=== PATIENT | male | born 1950 | race Caucasian/White ===

== ENCOUNTER 2016-03-10 12:06 | Inpatient (IN) ==
[2016-03-10] MEDS ORDERED: SODIUM CHLORIDE 0.9% 500 ML IV STA (12:58)
[2016-03-10] MEDS ORDERED: ONDANSETRON 4 MG/2 ML VIAL IV STA (12:58)
[2016-03-10] MEDS ORDERED: ALBUTEROL 2.5 MG/3 ML NEB RESP TX STA (12:59)
[2016-03-10] MEDS ORDERED: ONDANSETRON 4 MG/2 ML VIAL ONE ×2 (13:07→17:40)
--- NOTE | 2016-03-10 13:13 | Emergency Department Note ---
María Munoz Gwan, am scribing for, and in the presence of, Brice Medellin MD 13:01 . Lacie Munoz James D, MD, personally performed the services described in this documentation, ascribed by Sarthak Daniel in my presence, and it is both accurate and complete 310 . Arrival - Arrival Chief Complaint: Abdominal / Flank Pain Stated Complaint: nausea, diaherra, headache, fever ED Nursing Triage Note: c/o n/v/d and abd pain that started. +fever and chills Mode of Arrival: Ambulatory Limitations: No Limitations Source: Patient, Old Records Reviewed, RN Notes Reviewed Time Seen by Provider: 03/10/16 12:54 - History of Present Illness HPI Narrative: Pt is a 65 y/o male who presents to the ED with a c/o abd pain with an onset 5 days ago. His associated sxs have been N/V/D, loss of appetite, productive cough and subjective fever. At time of triage, pt's temperature was 98.1. Patient denies smoking cigarettes but stated that he is a social user of ETOH. He stated that he has not been around anyone else that has been sick. No other problems/complaints reported in ED. Onset (ago): day(s) Consistency: constant Severity: moderate Allergies/Adverse Reactions: Allergies Allergy/AdvReac Type Severity Reaction Status Date / Time Penicillins Allergy UNCONSCIOUS Verified 04/14/15 09:05 Home Medications: Home Medications Medication Instructions Recorded Confirmed Type No Known Home Medications [No 03/10/16 03/10/16 History Known Home Medications] Review of System - Review of System 12 point system: reviewed and no additional remarkable complaints except as stated - Review of System Constitutional: Present: as per HPI, fever, other (loss of appetite) Head/Ears/Nose/Throat: Present: see HPI, sore throat Gastrointestinal: Present: as per HPI, abdominal pain, nausea, vomiting, diarrhea Medical,Surgical,& Family Hx - Medical History Endocrine: History of: Diabetes Mellitus (NIDDM) - Social History Smoking Status: Never smoker Frequency of Alcohol Use: Occasionally Type of Drug Use: None Exam Vital Signs: Vital Signs Temperature 98.1 F 03/10/16 12:15 Pulse Rate 80 03/10/16 13:43 Respiratory Rate 18 03/10/16 13:43 Blood Pressure 127/84 03/10/16 12:15 O2 Sat by Pulse Oximetry 100 03/10/16 13:43 GENERAL: This is a well-nourished well-developed white male in no apparent distress. VITAL SIGNS: Reviewed HEENT: Head is atraumatic and normocephalic. Pupils are equal round react to light. Extraocular movements are intact. Oropharynx is benign with moist mucous membranes. NECK: Neck is soft and supple without tenderness. There are no masses. There is no lymphadenopathy. LUNGS: Expiratory wheezes in posterior lung ayers with prolonged expiration. Chest rises symmetrically. There is no chest wall tenderness. CV: Heart is regular rate and rhythm without murmurs rubs or gallops. ABDOMEN: Abdomen is soft, nontender to palpation. There are no abdominal abnormal masses palpated. There is no organomegaly. Bowel sounds are present and active. SKIN: Skin is warm and dry. No rash. EXTREMITIES: Patient has full range of motion without tenderness. There is no pedal edema. NEUROLOGIC: Awake alert and oriented 4. Cranial nerves II through XII are grossly intact. Motor is 5 over 5 in all extremities bilaterally. Course - Consultations Consultation #1: Discussed with hospitalist. Patient will be admitted to their service. Time: 15:55 Results - Labs CBC & BMP: 03/10/16 13:10 03/10/16 13:10 Lab Results: I have reviewed the patients labs Labs: Laboratory Tests 03/10/16 13:10 AST 475 H ALT 418 H Lipase 225.0 - EKG EKG results: interpreted by ERMD - Impressions EKG: Normal sinus rhythm with rate of 77, left axis deviation, nonspecific ST-T wave changes. - Diagnostic Findings Procedure: Abdominal x-ray: image reviewed by me (No free air, gas in the rectum , nonspecific gas pattern), Chest x-ray: image reviewed by me (No cardiomegaly, no pleural effusions, no infiltrates.), Ultrasound: report reviewed by me ( Gallbladder ultrasound: Positive Denny sign consistent with acute cholecystitis. HIDA scan is recommended. No cholelithiasis.) Disposition Clinical Impression: Cough, Nausea vomiting and diarrhea, Elevated LFTs, Right upper quadrant abdominal pain Case discussed with: patient Disposition: Still a Patient Condition: Stable Time of Disposition: 15:55
--- NOTE | 2016-03-10 13:25 | EKG Report ---
Stationary ECG Study [facility] ER Test Date: 03/10/2016 1:23:55 PM Pat Name: MOJGAN GRIER Department: Room: Gender: M Decision Analyst: BILLY : 1950 Requested by: Brice Dorsey Order Number: [id number] Reading MD: AMALIA DAVIS Intervals [place] Rate: 77 P: 62 WI: 155 QRS: -43 QRSD: 95 T: 13 QT: 370 QTc: 402 Interpretive Statements SINUS RHYTHM MARKED LEFT AXIS DEVIATION Electronically Signed On 03-10-16 13:31:15 VENDING MACHINE ATTENDANT by AMALIA DAVIS [email or web address]
[2016-03-10 13:26] LABS: Basophils % 0.3 % (0.0-0.8); Eosinophils % 0.2 % (0.00-10.9); Hematocrit 45.2 VOL% (42.0-52.0); Hemoglobin 15.8 GM/DL (14.0-18.0); Immature Granulocytes % 0.2 %; Immature Granulocytes Absolute 0.01 #; Lymphocytes # 1.4 10*3/uL (1.4-4.0); Lymphocytes % 22.7 % (21.2-54.2); Mean Corpuscular Hemoglobin 32 PG (27-34); Mean Corpuscular Volume 90.4 FL (87-102); Mean Platelet Volume 10.3 FL (9.6-12.0); Monocytes # 0.8 10*3/uL (0.11-0.8); Monocytes % 12.8 % (1.7-12.7); Neutrophils % 63.8 % (38.7-73.9); Platelet Count 137 10*3/uL (130-400); Red Cell Distribution Width 12.4 % (9.3-17.3); White Blood Count 6.3 10*3/uL (4.5-13.71)
--- NOTE | 2016-03-10 13:31 | XRay Report ---
History: Abdominal pain Date: 03/10/2016 Study: Flat and erect abdomen Comparison exam: No abdominal x-ray available There is no evidence of pneumoperitoneum. The bowel gas pattern is nonobstructive without gross mass lesion. No radiopaque calculi are seen. There is prominent dextroscoliosis of the spine centered at the thoracolumbar junction. There is scattered moderate to prominent degenerative disc disease of the lumbar spine. Impression: No acute abdominal process. Scoliosis PROCEDURE INTERPRETED AT [facility] DEPARTMENT OF RADIOLOGY Final Report Signed by: Dr. Zari Judd
--- NOTE | 2016-03-10 13:34 | XRay Report ---
History: Abdominal pain with nausea, vomiting, diarrhea appears loss of appetite. Productive cough. Fever Date: 03/10/2016 Study: Chest x-ray single view Comparison exam: Chest x-ray June 06, 2009 The cardiac silhouette is upper normal in size. There is no mediastinal mass. The pulmonary vasculature is not engorged. There is no gross pleural effusion. The lungs are generally clear for shallow breath. The osseous structures are unchanged. Impression: No acute cardiopulmonary process PROCEDURE INTERPRETED AT [facility] DEPARTMENT OF RADIOLOGY Final Report Signed by: Dr. Zari Judd
[2016-03-10 13:45] LABS: Albumin 3.3 G/DL (3.4-5.0); Bilirubin,Total 0.8 MG/DL (0.2-1.0); Calcium 8.5 MG/DL (8.5-10.1); Potassium 3.9 MMOL/L (3.5-5.1); Total Protein 7.3 G/DL (6.4-8.3)
[2016-03-10 14:33] LABS: INR 1.1; PT Patient Result 11.3 SECS; Partial Thromboplastin Time 30.8 SECS (0-40)
--- NOTE | 2016-03-10 14:59 | Ultrasound Report ---
Exam: US gallbladder Date: 03/10/2016 2:22 PM Comparison: 07/08/2011 Indication: Elevated liver function tests Technique: Multiple transabdominal real-time scans were obtained of the right upper quadrant. Limited color flow scans were obtained. Ultrasound images were captured and stored. Findings: 9 mm polypoidal mucosal finding projecting in the dependent gallbladder location. The finding does not move or shadow. Positive sonographic Denny's sign with no definite mobile gallstones. CBD is normal in size measuring 3 mm. The liver is at the upper limits normal in size with no definite masses. Right kidney measures 107 mm in length with no mass or hydronephrosis. The pancreas, aorta including aortic bifurcation, and IVC are obscured by bowel gas. Impression: 9 mm gallbladder polyp. It is difficult to exclude additional small masses with this finding. Reported positive sonographic Denny's sign which could be associated with acute cholecystitis. Biliary scan and ejection fraction may be helpful for further evaluation. The liver is borderline in size. The pancreas and aorta are obscured by bowel gas. PROCEDURE INTERPRETED AT [facility] DEPARTMENT OF RADIOLOGY Final Report Signed by: Dr. Carmen Cast
--- NOTE | 2016-03-10 16:45 | Nuclear Medicine Report ---
NM hepatobiliary Indication: Right upper quadrant abdominal pain with elevated LFTs Comparison: None Radiopharmaceutical: 5 mCi technetium 99m Choletec IV. Technique: Anterior dynamic images were acquired over the upper abdomen for a period of 1 hour following intravenous administration of the radiopharmaceutical. Subsequently, 2.4 mcg of Kinevac was administered intravenously with additional images of the upper abdomen acquired for 30 minutes. Gallbladder ejection fraction was calculated. Findings: Review of the images demonstrate prompt clearance of the radiopharmaceutical from the blood pool into the liver parenchyma. There is prompt progression of the isotope from the liver into the intrahepatic biliary ducts, common bile duct, and the gallbladder. Radiotracer is noted in the small bowel at the end of 60 minutes.Following administration of Kinevac, calculated gallbladder ejection fraction was 68 % (normal > 35%). There was further radiotracer accumulation in the small bowel. IMPRESSION: Unremarkable nuclear medicine hepatobiliary imaging study. PROCEDURE INTERPRETED AT [facility] DEPARTMENT OF RADIOLOGY Final Report Signed by: Dr Pasha Boyce
--- NOTE | 2016-03-10 17:23 | Hospitalist History & Physical ---
<Deepthi Lewis N - Last Filed: 03/10/16 18:13> Assessment and Plan (1) Right upper quadrant abdominal pain Status: Acute Assessment and plan: We will admit as inpt Hydrate well with IV fluids Consult GI to see him CT abdomen with IV contrast to further eval his liver LDH, GGT, Hepatitis Panel, tylenol level PPI therapy Clear liquid diet DVT prophylaxis SSI while inpt IV Levaquin PRN meds further plan and addendum to follow per Dr. Andrade Current Visit: Yes History of Present Illness History of present illness: I have seen and assessed with Dr. Andrade. Mr. Rai is a 65 year old male who presents to the Er with RUQ abdominal pain that started last . He admits to drinking a case of beer on Thu prior to that. States on he was ill, only able to eat small amounts of soup, and this has been constant since then and accompanied by n/v/ d. He did worsen yesterday having several episodes of diarrhea. He also has left flank musculature type pain, started after his vomiting. Also has cold s/s for a few days. Denies recent exposure to seafood. Denies recent exposure to illness. Denies daily tylenol use but does take PRN tylenol and BC. Admits to recent fever and chills, not eating well, very little, dark, urine output. He states he was admitted in the early and was told he had liver problems, he does not remember what kind or from what cause. He was a former heavy drinker , says he no longer drinks daily but about once a week he will drink a case of beer. Stopped smoking in and denies drug use. He also states he has a prior med hx of DM but has stopped taking his meds because it was too costly to go to his PCP to get refills. He has a PMH of DM. PSH of sinus sx, back sx, and abscess to left inner arm. On exam he is noted to have a large, protuberant, distended abdomen with tenderness in the RUQ. Liver large on exam per Dr. Andrade. Noted to have bibasilar rhonchi and wheezing. Had a prior colonoscopy and EGD by Dr. Styles several years ago. Liver enzymes noted to be elevated today, alkaline phos. and bilirubin normal. Afebrile and normal WBC. Had HIDA scan done in ER that was normal. Home Medications Medication Instructions Recorded Confirmed Type No Known Home Medications [No 03/10/16 03/11/16 History Known Home Medications] Allergies Allergy/AdvReac Type Severity Reaction Status Date / Time Penicillins Allergy UNCONSCIOUS Verified 04/14/15 09:05 Exam - Constitutional Vitals: Period Temp Pulse Resp BP Sys/Cotter Pulse Ox Last 24 Hr 98.1 F 72-94 18-18 127/84 96-100 Results - Labs CBC & BMP: 03/10/16 13:10 03/10/16 13:10 <Neil Andrade - Last Filed: 03/11/16 07:36> Assessment and Plan - Time spent with patient Time spent with patient: Greater than 30 minutes (1) Hepatitis Status: Acute Assessment and plan: hepatitis panel gi consult Current Visit: Yes (2) DM2 (diabetes mellitus, type 2) Status: Acute Assessment and plan: SSI with accu checks Current Visit: Yes Qualifiers: Diabetes mellitus complication status: without complication Diabetes mellitus intermission coordinator insulin use: without correction use Qualified Code(s): E11.9 - Type 2 diabetes mellitus without complications (3) Morbid obesity Status: Chronic Current Visit: Yes (4) Nausea vomiting and diarrhea Status: Acute Current Visit: Yes (5) Elevated LFTs Status: Acute Current Visit: Yes (6) Right upper quadrant abdominal pain Status: Acute Current Visit: Yes History of Present Illness Chief complaint: N/V/ diarrhea, Abdominal Pain History of present illness: Mr. Rai is a 65 year old male presents to the emergency department with abdominal pain that began on with accompanying nausea and vomiting and diarrhea. Symptoms of worsened since beginning on culminating in no multiple bouts of diarrhea Thursday and yesterday. He presents to the emergency department for further evaluation and treatment. He's noted to have elevated liver function tests. There is no evidence of gallbladder disease or dysfunction or cholecystitis. He is being admitted to the hospital service for further evaluation and treatment and GI consultation. I have discussed the plan with the CLINICAL PROGRAM DIRECTOR and agree with the documentation below. Medical,Surgical,& Family Hx - Medical History Endocrine: History of: Diabetes Mellitus (NIDDM) - Social History Smoking Status: Never smoker Frequency of Alcohol Use: Occasionally Type of Drug Use: None 12 point system: reviewed and no additional remarkable complaints except as stated - Constitutional Constitutional: Present: as per HPI - Gastrointestinal Gastrointestinal: Present: abdominal pain, diarrhea, vomiting Exam - Constitutional Vitals: Period Temp Pulse Resp BP Sys/Cotter Pulse Ox Last 24 Hr 98.1 F 72-94 18-18 127/84 96-100 General appearance: mild distress - Head Head exam: Present: normal inspection, normocephalic, atraumatic - Eye Eye exam: Present: EOMI Pupils: Present: VELIA - ENT ENT exam: Present: normal oropharynx - Respiratory Respiratory exam: Present: rhonchi, wheezes - Cardiovascular Cardiovascular exam: Present: regular rate and rhythm - GI/Abdominal GI/Abdominal exam: Present: normal bowel sounds, distended, Denny's sign, tenderness - Extremities Exam Extremities exam: Present: normal inspection, full ROM. Absent: edema - Back Exam Back exam: Present: normal inspection - Neurological Exam Neurological exam: Present: alert, oriented X3 - Psychiatric Psychiatric exam: Present: normal affect, normal mood - Skin Skin exam: Present: normal color, warm, dry Results - Labs CBC & BMP: 03/11/16 05:13 03/11/16 05:13 Lab Results: I have reviewed the past 24 hour labs
[2016-03-10] MEDS ORDERED: MORPHINE 2 MG/1 ML SYRINGE ONE (17:41)
[2016-03-10] MEDS: ONDANSETRON 4 MG/2 ML VIAL IV PRN (17:45)
[2016-03-10] MEDS: MORPHINE 2 MG/1 ML SYRINGE IV PRN (17:45)
[2016-03-10] MEDS ORDERED: DEXTROSE 50% 25 GM/50 ML VIAL IV PRN (17:57)
[2016-03-10] MEDS ORDERED: GLUCAGON 1 MG VIAL IM PRN (17:57)
--- NOTE | 2016-03-10 19:41 | CT Report ---
CT abdomen pelvis wo con Indication: Abdominal pain, abnormal LFTs Comparison: CT abdomen pelvis dated july 28 Technique: Multiple axial tomographic images of the abdomen and pelvis were obtained without use of intravenous contrast. Findings: Mild dependent change of the lung bases present. No worrisome focal hepatic abnormality. Gallbladder mildly distended. Pancreas and spleen grossly unremarkable. Redemonstration of a right adrenal lesion with Hounsfield units suggestive of adenoma. Left adrenal gland grossly unremarkable. No evidence of hydronephrosis. Bilateral nonspecific perinephric fat stranding. Urinary bladder nondistended and incompletely evaluated. Prostate demonstrates mild calcification. No evidence of gastrointestinal obstruction or acute appendicitis. Small lipoma is suggested within the gastric antrum. Mild atherosclerotic calcifications present. There is continued prominence of a portacaval lymph node which measures up to 1.7 cm and is somewhat hyperdense. This is unchanged from comparison study dated july 28. Lipoma demonstrated within the musculature of the left anterior upper abdomen/lower chest wall measuring up to 8.1 x 3.0 cm in axial dimensions. Scoliotic curvature and degenerative change of the spine present. Chronic appearing severe compression deformity of T11. IMPRESSION: Mild distention of the gallbladder present. Nuclear medicine hepatobiliary imaging study may be beneficial for further evaluation. Other chronic/nonemergent findings as detailed above. PROCEDURE INTERPRETED AT [facility] DEPARTMENT OF RADIOLOGY Final Report Signed by: Dr Pasha Boyce
[2016-03-10] MEDS ORDERED: ALBUTEROL/IPRATROPIUM 3 ML NEB RESP TX STA (20:09)
[2016-03-10] MEDS: SODIUM CHLORIDE 0.9% 1,000 ML IV SCH (20:20)
[2016-03-10] MEDS: LEVOFLOXACIN INJ 750 MG in PREMIX 1 EACH IV SCH (21:24)
[2016-03-10] MEDS: CYCLOBENZAPRINE 10 MG TABLET PO PRN (21:25)
[2016-03-10] MEDS: PANTOPRAZOLE 40 MG TABLET PO SCH (21:25)
[2016-03-10] MEDS: INSULIN LISPRO 100 UNIT/ML SUBCUT SCH (21:25)
[2016-03-10] MEDS: ZALEPLON 5 MG CAPSULE PO PRN (21:25)
[2016-03-10] MEDS: guaiFENesin/DM ER 600-30 MG TABLET PO SCH (21:25)
[2016-03-11] MEDS: SODIUM CHLORIDE 0.9% 1,000 ML IV SCH ×3 (04:51→22:42)
[2016-03-11 06:27] LABS: Hepatitis A Ab IgM Quant 0.18 Index; Hepatitis A Ab IgM Result Negative (Negative); Hepatitis B Core IgM Quant 0.22 Index; Hepatitis B Core IgM Result Negative (Negative); Hepatitis C Virus Ab Quant 0.04 Index; Hepatitis C Virus Ab Result Negative (Negative)
[2016-03-11 06:33] LABS: Basophils % 0.5 % (0.0-0.8); Eosinophils % 0.7 % (0.00-10.9); Hematocrit 40.7 VOL% (42.0-52.0); Hemoglobin 14.2 GM/DL (14.0-18.0); Lymphocytes % 45.9 % (21.2-54.2); Mean Corpuscular HGB Conc 34.9 GM/DL (32-36); Mean Corpuscular Hemoglobin 32 PG (27-34); Mean Corpuscular Volume 91.3 FL (87-102); Mean Platelet Volume 10.7 FL (9.6-12.0); Monocytes # 0.4 10*3/uL (0.11-0.8); Monocytes % 8.9 % (1.7-12.7); Neutrophils # 1.9 10*3/uL (1.4-7.4); Red Blood Count 4.46 10*6/uL (3.8-5.5); Red Cell Distribution Width 12.4 % (9.3-17.3)
[2016-03-11 06:34] LABS: Platelet Count 108 10*3/uL (130-400); White Blood Count 4.4 10*3/uL (4.5-13.71)
[2016-03-11 06:56] LABS: Free T4 (Free Thyroxine) 1.17 NG/DL (0.76-1.46)
[2016-03-11 07:08] LABS: Albumin 2.8 G/DL (3.4-5.0); Bilirubin,Total 1.1 MG/DL (0.2-1.0); Calcium 8.1 MG/DL (8.5-10.1); Magnesium 1.9 MG/DL (1.8-2.4); Osmolality,Calculated 277.5 MOS/KG (273-304); Risk Ratio 4.47; Thyroid Stimulating Hormone 2.27 uIU/ml (0.358-3.74); Total Protein 5.8 G/DL (6.4-8.3); VLDL CHOLESTEROL 17.8 MG/DL
[2016-03-11 07:15] LABS: Hepatitis B Surface Ag Quant < 0.10 Index; Hepatitis B Surface Ag Result Negative (Negative)
[2016-03-11] MEDS: INSULIN LISPRO 100 UNIT/ML SUBCUT SCH ×4 (07:47→20:50)
[2016-03-11] MEDS: guaiFENesin/DM ER 600-30 MG TABLET PO SCH ×2 (09:00→20:50)
[2016-03-11] MEDS: PANTOPRAZOLE 40 MG TABLET PO SCH ×2 (09:00→20:50)
[2016-03-11] MEDS: ONDANSETRON 4 MG/2 ML VIAL IV PRN (10:58)
[2016-03-11] MEDS: MORPHINE 2 MG/1 ML SYRINGE IV PRN (10:58)
--- NOTE | 2016-03-11 12:02 | Hospitalist Progress Note ---
Assessment and Plan (1) Hepatitis Status: Acute Assessment and plan: acute hepatitis panel negative gi consult pending Current Visit: Yes (2) DM2 (diabetes mellitus, type 2) Status: Acute Assessment and plan: SSI with accu checks Current Visit: Yes Qualifiers: Diabetes mellitus complication status: without complication Diabetes mellitus long term care administrator insulin use: without care home use Qualified Code(s): E11.9 - Type 2 diabetes mellitus without complications (3) Morbid obesity Status: Chronic Current Visit: Yes (4) Nausea vomiting and diarrhea Status: Acute Current Visit: Yes (5) Elevated LFTs Status: Acute Current Visit: Yes (6) Right upper quadrant abdominal pain Status: Acute Current Visit: Yes Hospitalist: Subjective Interval history: Patient seen and examined. No acute events overnight. He continues to have some diarrhea. Nausea persists. No vomiting. No fever. Abdominal pain is a little bit better. LFTs are mildly improved. Awaiting GI consult. He's on clear liquid diet and tolerating it well. Exam - Constitutional Vitals: Period Temp Pulse Resp BP Sys/Cotter Pulse Ox Last 24 Hr 98.1 F-98.5 F 56-77 18-22 99-126/56-73 96-96 General appearance: no acute distress - Head Head exam: Present: normal inspection, normocephalic - Eye Eye exam: Present: EOMI - Respiratory Respiratory exam: Present: clear to auscultation bilaterally - Cardiovascular Cardiovascular exam: Present: regular rate and rhythm - GI/Abdominal GI/Abdominal exam: Present: normal bowel sounds, distended, tenderness (ruq) - Extremities Exam Extremities exam: Absent: edema - Neurological Exam Neurological exam: Present: alert, oriented X3 - Psychiatric Psychiatric exam: Present: normal affect, normal mood - Skin Skin exam: Present: normal color, warm, dry Results - Labs CBC & BMP: 03/11/16 05:13 03/11/16 05:13 Lab Results: I have reviewed the past 24 hour labs Specialty Discharge - Follow Up or Referrals - Discharge Medications No Action No Known Home Medications [No Known Home Medications]
--- NOTE | 2016-03-11 13:02 | Gastrointestinal Consult Note ---
Assessment and Plan (1) Elevated LFTs Status: Acute Assessment and plan: 03/11-Findings of elevated LFTs with vague history of this in past. Negative hepatitis panel. CT of abdomen, HIDA and gallbladder US results noted. Hx noted of elevated LFTs on prior hospitalization. Plan and addendum to follow by Dr Judd. Current Visit: Yes History of Present Illness Chief complaint: Elevated LFTs History of present illness: Mr. Rai is a 65 year old male who was admitted to the hospital with one week history of upper respiratory symptoms, nausea, vomiting and diarrhea. Pt states that one week ago he had onset of a productive cough, reported fever ( not checked), chills and loss of appetite. He also began having some nausea with episodes of vomiting. He states he had some diffuse pain throughout his abdomen as well and began having diarrhea about the same time. Pt states he has had too numerous to count stools since onset until today and has decreased in frequency now. He denies any melena or hematochezia. Denies any coffee ground or hematemesis. He denies being around others who have been ill recently. States that he has lost his appetite as well and has not eaten in several days anything other than a little soup. He was noted on admission to have elevated AST at 475, ALT 418 with normal bilirubin and alkaline phosphatase. These have trended down some today however Bilirubin is up slightly at 1.10. Lipase 225. He states he has a long history of alcohol use however states he drinks every other day to once a month sometimes, anywhere from a beer to a case of beer at a time. He did drink a case of beer last thursday and symptoms began following this. Reports some vague pain in his left upper side that comes and goes and has done so for long period of time. Reports some RUQ pain that has wavered as well since onset, radiating to his back. He denies any illegal drug use, tobacco use. He has multiple "store bought" tattoos. States he was told in the he had something wrong with his liver and initially thought to have hepatitis C however he states this was not the case. He reports not having his LFTs checked since this time. He denies any illnesses prior to this onset, denies any OTC medications, prescription medication changes or supplement use. CT of abdomen w/o contrast shows mild distention of gallbladder, gastric antrum lipoma, no worriesome focal hepatic abnormality. GB US shows gallbladder polyp, ? additional small mass, positive [place] sign, liver upper limits of normal w/ o masses. HIDA scan unremarkable. He is noted in our facility database to have mildly elevated LFTs in 2010 with negative hepatitis workup. Hx of DM, not taking medications due to financial reasons. Home Medications Medication Instructions Recorded Confirmed Type No Known Home Medications [No 03/10/16 03/11/16 History Known Home Medications] Allergies Allergy/AdvReac Type Severity Reaction Status Date / Time Penicillins Allergy UNCONSCIOUS Verified 04/14/15 09:05 Medical,Surgical,& Family Hx - Medical History Cardio: History of: Hypertension Endocrine: History of: Diabetes Mellitus (NIDDM) Musculoskeletal: History of: Back/Neck Problems - Surgical History Abdominal Surgeries: Patient denies: Abdominal Surgery Reproductive Surgeries: Patient denies;: Genitourinary Surgery - Family History Family History: Reports;: Family Cancer (brother), Family Stroke (mother) - Social History Smoking Status: Never smoker Frequency of Alcohol Use: Occasionally Type of Drug Use: None 12 point system: reviewed and no additional remarkable complaints except as stated - Constitutional Constitutional: Present: as per HPI, chills, fever(s), weakness - EENT Eyes: Present: as per HPI Ears: Present: as per HPI Nose, mouth and throat: Present: as per HPI - Cardiovascular Cardiovascular: Present: as per HPI - Respiratory Respiratory: Present: as per HPI, cough - Gastrointestinal Gastrointestinal: Present: as per HPI, abdominal pain, diarrhea, nausea, vomiting - Genitourinary Genitourinary: Present: as per HPI - Musculoskeletal Musculoskeletal: Present: as per HPI - Neurological Neurological: Present: as per HPI - Psychiatric Psychiatric: Present: as per HPI - Endocrine Endocrine: Present: as per HPI - Hematologic/Lymphatic Hematologic/Lymphatic: Present: as per HPI Exam - Constitutional Vitals: Period Temp Pulse Resp BP Sys/Cotter Pulse Ox Last 24 Hr 98.1 F-98.5 F 52-77 18-22 99-126/56-80 96-98 General appearance: normal weight, no acute distress - Head Head exam: Present: normal inspection, normocephalic - Eye Eye exam: Present: other (lids and conjunctiva unremarkable). Absent: scleral icterus - ENT ENT exam: Present: normal exam, normal oropharynx - Neck Neck exam: Present: normal inspection - Respiratory Respiratory exam: Present: clear to auscultation bilaterally. Absent: rales, rhonchi, wheezes - Cardiovascular Cardiovascular exam: Present: regular rate and rhythm. Absent: diastolic murmur , JVD, systolic murmur - GI/Abdominal GI/Abdominal exam: Present: normal bowel sounds, soft. Absent: ascites, distended, mass, organomegaly, tenderness - Extremities Exam Extremities exam: Present: normal inspection, full ROM - Back Exam Back exam: Present: normal inspection - Neurological Exam Neurological exam: Present: alert, oriented X3 - Psychiatric Psychiatric exam: Present: normal affect, normal mood - Skin Skin exam: Present: normal color, warm, dry Results - Labs CBC & BMP: 03/11/16 05:13 03/11/16 05:13 Lab Results: I have reviewed the past 24 hour labs - Diagnostic Findings Procedure: CT Abdomen and Pelvis: report reviewed by me, Ultrasound: report reviewed by me Specialty Discharge - Follow Up or Referrals - Discharge Medications No Action No Known Home Medications [No Known Home Medications]
[2016-03-11] MEDS: LEVOFLOXACIN INJ 750 MG in PREMIX 1 EACH IV SCH (17:10)
[2016-03-11] MEDS: CYCLOBENZAPRINE 10 MG TABLET PO PRN (20:50)
[2016-03-11] MEDS: ZALEPLON 5 MG CAPSULE PO PRN (20:50)
[2016-03-12 06:55] LABS: Albumin 2.6 G/DL (3.4-5.0); Bilirubin,Direct 0.1 MG/DL (0.0-0.20); Bilirubin,Indirect 1.1 MG/DL (0.0-1.0); Bilirubin,Total 1.2 MG/DL (0.2-1.0); Total Protein 5.2 G/DL (6.4-8.3)
[2016-03-12 07:09] LABS: % Iron Saturation 97.5 % (18-50); Ferritin 16685.8 ng/ml (26-388)
--- NOTE | 2016-03-12 08:49 | Gastrointestinal Progress Note ---
<Alessandra Tovar Sunita - Last Filed: 03/12/16 08:46> Assessment and Plan (1) Elevated LFTs Status: Acute Assessment and plan: 03/12-LFTs trending down today. Afebrile. LES and mono spot negative. Plan and addendum to follow by DR Judd. 03/11-Findings of elevated LFTs with vague history of this in past. Negative hepatitis panel. CT of abdomen, HIDA and gallbladder US results noted. Hx noted of elevated LFTs on prior hospitalization. Plan and addendum to follow by Dr Judd. Current Visit: Yes Gastroenterology - PN: Subj Interval history: CC: Elevated LFTs Pt is awake and alert sitting up in bed with at side. States that he feels a little better today. He is still having some body aches but is afebrile. He had an episode of nausea last night but denies any vomiting. His LFTs are trending down some today, bilirbuin is up slightly at 1.2. His LES and mono spot are negative. He is noted to have elevated ferritin and saturation levels with low TIBC. Abdomen is soft, nontender. ROS: Denies SOB or chest pain Exam (Progress Note) - Constitutional Vitals: Period Temp Pulse Resp BP Sys/Cotter Pulse Ox Last 24 Hr 98.2 F-98.6 F 52-74 12-20 105-134/59-82 95-99 - Other Additional findings: General appearance: normal weight, no acute distress - Head Head exam: Present: normal inspection, normocephalic - Eye Eye exam: Present: other (lids and conjunctiva unremarkable). Absent: scleral icterus - ENT ENT exam: Present: normal exam, normal oropharynx - Neck Neck exam: Present: normal inspection - Respiratory Respiratory exam: Present: clear to auscultation bilaterally. Absent: rales, rhonchi, wheezes - Cardiovascular Cardiovascular exam: Present: regular rate and rhythm. Absent: diastolic murmur , JVD, systolic murmur - GI/Abdominal GI/Abdominal exam: Present: normal bowel sounds, soft. Absent: ascites, distended, mass, organomegaly, tenderness - Extremities Exam Extremities exam: Present: normal inspection, full ROM - Back Exam Back exam: Present: normal inspection - Neurological Exam Neurological exam: Present: alert, oriented X3 - Psychiatric Psychiatric exam: Present: normal affect, normal mood - Skin Skin exam: Present: normal color, warm, dry Results - Labs CBC & BMP: 03/11/16 05:13 03/11/16 05:13 Lab Results: I have reviewed the past 24 hour labs <Ford Judd - Last Filed: 03/12/16 13:52> Exam (Progress Note) - Constitutional Vitals: Period Temp Pulse Resp BP Sys/Cotter Pulse Ox Last 24 Hr 97.9 F-98.6 F 49-74 12-20 105-141/59-82 95-99 Results - Labs CBC & BMP: 03/11/16 05:13 03/11/16 05:13
[2016-03-12] MEDS: INSULIN LISPRO 100 UNIT/ML SUBCUT SCH ×4 (09:03→19:59)
[2016-03-12] MEDS: PANTOPRAZOLE 40 MG TABLET PO SCH ×2 (09:03→20:43)
[2016-03-12] MEDS: guaiFENesin/DM ER 600-30 MG TABLET PO SCH ×2 (09:03→20:43)
[2016-03-12] MEDS: SODIUM CHLORIDE 0.9% 1,000 ML IV SCH ×3 (09:06→18:05)
--- NOTE | 2016-03-12 10:23 | Hospitalist Progress Note ---
Assessment and Plan (1) Hepatitis Status: Acute Assessment and plan: acute hepatitis panel negative transaminase's coming down LES neg [place] Neg Elevated ferritin (acute phase reactant) Iron sat also high. Iron 153(normal) Current Visit: Yes (2) DM2 (diabetes mellitus, type 2) Status: Acute Assessment and plan: SSI with accu checks Current Visit: Yes Qualifiers: Diabetes mellitus complication status: without complication Diabetes mellitus jail insulin use: without terminal make up operator use Qualified Code(s): E11.9 - Type 2 diabetes mellitus without complications (3) Morbid obesity Status: Chronic Current Visit: Yes (4) Nausea vomiting and diarrhea Status: Acute Current Visit: Yes (5) Elevated LFTs Status: Acute Current Visit: Yes (6) Right upper quadrant abdominal pain Status: Acute Current Visit: Yes Hospitalist: Subjective Interval history: Patient seen and examined with his at the bedside. He reports improvement in his diarrhea and abdominal pain. His LFTs are coming down. He has an elevated iron saturation and ferritin levels. Hepatitis panel has been negative as well as AMA and Monospot. GI following. Exam - Constitutional Vitals: Period Temp Pulse Resp BP Sys/Cotter Pulse Ox Last 24 Hr 98.2 F-98.6 F 52-74 12-20 105-134/59-82 95-99 General appearance: no acute distress - Head Head exam: Present: normal inspection, normocephalic, atraumatic - Eye Eye exam: Present: EOMI Pupils: Present: VELIA - Respiratory Respiratory exam: Present: clear to auscultation bilaterally - Cardiovascular Cardiovascular exam: Present: regular rate and rhythm - GI/Abdominal GI/Abdominal exam: Present: normal bowel sounds, distended, soft. Absent: tenderness, rebound - Extremities Exam Extremities exam: Absent: edema - Neurological Exam Neurological exam: Present: alert, oriented X3 - Psychiatric Psychiatric exam: Present: normal affect, normal mood - Skin Skin exam: Present: normal color, warm Results - Labs CBC & BMP: 03/11/16 05:13 03/11/16 05:13 Lab Results: I have reviewed the past 24 hour labs
[2016-03-12] MEDS: ONDANSETRON 4 MG/2 ML VIAL IV PRN (12:00)
[2016-03-12] MEDS: LEVOFLOXACIN INJ 750 MG in PREMIX 1 EACH IV SCH (17:15)
[2016-03-12] MEDS: ALBUTEROL/IPRATROPIUM 3 ML NEB RESP TX SCH (19:09)
[2016-03-13] MEDS: ALBUTEROL/IPRATROPIUM 3 ML NEB RESP TX SCH ×3 (00:02→13:28)
[2016-03-13] MEDS: SODIUM CHLORIDE 0.9% 1,000 ML IV SCH (02:30)
[2016-03-13] MEDS: ONDANSETRON 4 MG/2 ML VIAL IV PRN (05:25)
[2016-03-13] MEDS: MORPHINE 2 MG/1 ML SYRINGE IV PRN (05:25)
[2016-03-13 07:17] LABS: Albumin 2.8 G/DL (3.4-5.0); Bilirubin,Total 0.6 MG/DL (0.2-1.0); Calcium 7.7 MG/DL (8.5-10.1); Potassium 4.2 MMOL/L (3.5-5.1); Total Protein 5.6 G/DL (6.4-8.3)
--- NOTE | 2016-03-13 07:50 | Hospitalist Progress Note ---
<Ana Molina - Last Filed: 03/13/16 07:45> Assessment and Plan - Time spent with patient Time spent with patient: Less than 30 minutes (due to assessment, plan and documentation.) (1) Right upper quadrant abdominal pain Status: Acute Assessment and plan: states that his pain is better, but that he is still nauseated at times Current Visit: Yes (2) Cough Status: Acute Assessment and plan: on levaquin but complains of green sputum, will obtain cxr today to ensure no change there. Current Visit: Yes (3) DM2 (diabetes mellitus, type 2) Status: Acute Assessment and plan: glucoses fairly well controlled, last night 125, this AM 225. Current Visit: Yes Qualifiers: Diabetes mellitus complication status: without complication Diabetes mellitus milk tester insulin use: without prison use Qualified Code(s): E11.9 - Type 2 diabetes mellitus without complications (4) Elevated LFTs Status: Acute Current Visit: Yes (5) Hepatitis Status: Acute Current Visit: Yes (6) Nausea vomiting and diarrhea Status: Acute Current Visit: Yes Hospitalist: Subjective Interval history: Mr. Rai was seen on rounds this morning sitting on the side of the bed. He states that he "feels okay", but that he has a headache and is slightly nauseated. Denies any abdominal pain at this time. He was admitted for RUQ abdominal pain, Nausea, Vomiting, Diarrhea. His LFT's were noted to be elevated. He also has a hx of Hepatitis. His hep panel was negative for acute hepatitis. GI has been consulted and has ordered labs to check for hemachromatosis. Flu and [place] tests were negative. He does complain of cough , with green sputum. His lungs are clear this morning and he is on Levaquin already. Denies any shortness of breath, or chest pain. He is afebrile. Will get a CXR today. We will continue to follow along with GI. Labs in AM. Exam - Constitutional Vitals: Period Temp Pulse Resp BP Sys/Cotter Pulse Ox Last 24 Hr 97.7 F-98.4 F 49-63 18-20 129-149/75-84 95-98 General appearance: normal weight, no acute distress - Head Head exam: Present: normal inspection, normocephalic - Eye Eye exam: Present: EOMI. Absent: scleral icterus Pupils: Present: VELIA, normal accommodation - ENT ENT exam: Present: normal exam, normal oropharynx - Neck Neck exam: Present: normal inspection. Absent: lymphadenopathy - Respiratory Respiratory exam: Present: clear to auscultation bilaterally. Absent: accessory muscle use - Cardiovascular Cardiovascular exam: Present: regular rate and rhythm. Absent: carotid bruit - GI/Abdominal GI/Abdominal exam: Present: normal bowel sounds, soft. Absent: tenderness - Extremities Exam Extremities exam: Present: normal inspection. Absent: edema - Back Exam Back exam: Present: normal inspection. Absent: muscle spasm - Neurological Exam Neurological exam: Present: alert, oriented X3 - Psychiatric Psychiatric exam: Present: normal affect, normal mood - Skin Skin exam: Present: normal color, warm, dry, intact Results - Labs CBC & BMP: 03/11/16 05:13 03/13/16 05:19 Lab Results: I have reviewed the past 24 hour labs <Neil Andrade - Last Filed: 03/13/16 10:47> Assessment and Plan (1) Hepatitis Status: Acute Current Visit: Yes (2) DM2 (diabetes mellitus, type 2) Status: Acute Current Visit: Yes Qualifiers: Diabetes mellitus complication status: without complication Diabetes mellitus milk tester insulin use: without milk tester use Qualified Code(s): E11.9 - Type 2 diabetes mellitus without complications (3) Morbid obesity Status: Chronic Current Visit: Yes (4) Nausea vomiting and diarrhea Status: Acute Current Visit: Yes (5) Elevated LFTs Status: Acute Current Visit: Yes (6) Right upper quadrant abdominal pain Status: Acute Current Visit: Yes Hospitalist: Subjective Interval history: Patient seen and examined. Chart reviewed. Case discussed with Ana- nurse practitioner. Patient with a persistent productive cough. Chest x-ray shows a right lower lobe infiltrate. I suspect this was present on admission but has now become more evident after adequate IV fluid hydration. The patient is afebrile and his white blood cell count is normal. The workup for his elevated liver function tests has been otherwise unremarkable with the exception of elevated ferritin level for which GI is working him up for hemachromatosis. Exam - Constitutional Vitals: Period Temp Pulse Resp BP Sys/Cotter Pulse Ox Last 24 Hr 97.7 F-98.3 F 49-63 17-20 134-149/78-84 95-99 Results - Labs CBC & BMP: 03/11/16 05:13 03/13/16 05:19
--- NOTE | 2016-03-13 08:37 | XRay Report ---
XR chest 2V Date: 03/13/2016 7:49 AM History: Shortness of breath Comparison: 03/10/2016 Technique: PA and lateral chest Findings: The heart is minimally enlarged with progressive parenchymal findings at the right lung base. Stable mediastinum. Chronic fractures of the thoracolumbar junction with degenerative changes. Old healed clavicular fractures. Impression: Minimal atelectasis/infiltration at the right lung base. PROCEDURE INTERPRETED AT [facility] DEPARTMENT OF RADIOLOGY Final Report Signed by: Dr. Carmen Cast
--- NOTE | 2016-03-13 09:02 | Gastrointestinal Progress Note ---
Assessment and Plan (1) Elevated LFTs Status: Acute Assessment and plan: 03/13-LFTs continue to trend down. Afebrile. Hemochromatosis gene marker lab pending. Plan and addendum to follow by Dr Judd. 03/12-LFTs trending down today. Afebrile. LES and mono spot negative. Plan and addendum to follow by DR Judd. 03/11-Findings of elevated LFTs with vague history of this in past. Negative hepatitis panel. CT of abdomen, HIDA and gallbladder US results noted. Hx noted of elevated LFTs on prior hospitalization. Plan and addendum to follow by Dr Judd. Current Visit: Yes Gastroenterology - PN: Subj Interval history: CC: Elevated LFTs Pt is awake and alert, sitting in chair awake and alert eating breakfast. States he is feeling some better today however he is having increased productive cough. He is afebrile. Chest xray shows minimal atelectasis, inflitration at right lung base. Labwork has been done to further assess for hemochromatosis gene markers and results pending. Abdomen is soft, nontender. LFTs are trending down at present time. ROS: Denies SOB or chest pain Exam (Progress Note) - Constitutional Vitals: Period Temp Pulse Resp BP Sys/Cotter Pulse Ox Last 24 Hr 97.7 F-98.3 F 49-63 18-20 134-149/78-84 95-98 - Other Additional findings: General appearance: normal weight, no acute distress - Head Head exam: Present: normal inspection, normocephalic - Eye Eye exam: Present: other (lids and conjunctiva unremarkable). Absent: scleral icterus - ENT ENT exam: Present: normal exam, normal oropharynx - Neck Neck exam: Present: normal inspection - Respiratory Respiratory exam: Present: clear to auscultation bilaterally. Absent: rales, rhonchi, wheezes - Cardiovascular Cardiovascular exam: Present: regular rate and rhythm. Absent: diastolic murmur , JVD, systolic murmur - GI/Abdominal GI/Abdominal exam: Present: normal bowel sounds, soft. Absent: ascites, distended, mass, organomegaly, tenderness - Extremities Exam Extremities exam: Present: normal inspection, full ROM - Back Exam Back exam: Present: normal inspection - Neurological Exam Neurological exam: Present: alert, oriented X3 - Psychiatric Psychiatric exam: Present: normal affect, normal mood - Skin Skin exam: Present: normal color, warm, dry Results - Labs CBC & BMP: 03/11/16 05:13 03/13/16 05:19 Lab Results: I have reviewed the past 24 hour labs
[2016-03-13] MEDS: INSULIN LISPRO 100 UNIT/ML SUBCUT SCH ×2 (09:53→13:24)
[2016-03-13] MEDS: CYCLOBENZAPRINE 10 MG TABLET PO PRN (09:54)
[2016-03-13] MEDS: PANTOPRAZOLE 40 MG TABLET PO SCH (09:55)
[2016-03-13] MEDS: guaiFENesin/DM ER 600-30 MG TABLET PO SCH (09:55)
--- NOTE | 2016-03-13 10:51 | Discharge Summary ---
Hospital Course - Hospital Course Hospital Course: Mr. Rai is a 65-year-old white male presented to the emergency department with abdominal pain nausea vomiting and diarrhea. He was found to have elevated liver function tests and was referred to the hospitalist service for hospitalization and consultation with gastroenterology. Patient had a full inpatient workup including hepatitis panel which was negative screening tests for infectious mononucleosis which was also negative. The patient was acutely dehydrated at the time of admission and received copious IV fluid hydration. His liver function tests have improved dramatically over the last several days. He was followed closely by gastroenterology and gene analysis for workup for hemochromatosis has been drawn and sent. The patient is advised to follow this up with Dr. Judd in the office in the next 1-2 weeks. His abdominal pain, nausea vomiting, diarrhea have subsided. He does have evidence of a right lower lobe pneumonia and is on Levaquin for that. Upon discharge I will over new his home medications for diabetes as well as given a prescription for Levaquin and Mucinex as well as an albuterol inhaler. He's advised to follow-up with primary care physician as well as Dr. Judd in 1-2 weeks. - Time spent with patient Time with patient DS: Greater than 30 minutes Diagnosis - Discharge Diagnosis (1) Hepatitis Status: Acute (2) DM2 (diabetes mellitus, type 2) Status: Chronic (3) Morbid obesity Status: Chronic (4) Nausea vomiting and diarrhea Status: Resolved (5) Elevated LFTs Status: Acute (6) Right upper quadrant abdominal pain Status: Resolved (7) RLL pneumonia Status: Acute Discharge Plan - Discharge Data Disposition: Disch To Home/Self Care Condition at Discharge: Stable Discharge Diet: advance to your usual diet Activity: resume usual activities as tolerated Contact your physician if you experience:: fever over 101, Nausea/Vomiting, Shortness of breath - Discharge Medications New Albuterol Inhaler [Proventil Inhaler] 2 puff INH Q4H PRN #1 inhaler PRN Reason: Shortness Of Breath/Wheezing Cyclobenzaprine [Flexeril] 5 mg PO TID PRN #30 tablet PRN Reason: Spasms Levofloxacin Tab [Levaquin Tab] 750 mg PO DAILY #7 tablet Metformin HCl 500 mg PO BID W/MEALS #60 tablet glyBURIDE [Glyburide] 2.5 mg PO AC BREAKFAST #30 tablet guaiFENesin/DM ER 600-30 [Mucinex Dm] 1 tablet PO BID #30 tablet - Follow Up or Referral Follow Up: Ford Judd MD [Physician] - - Forms/Instructions Exam - Constitutional Vitals: Period Temp Pulse Resp BP Sys/Cotter Pulse Ox Last 24 Hr 97.7 F-98.3 F 49-63 17-20 134-149/78-84 95-99 General appearance: no acute distress - Head Head exam: Present: normal inspection, normocephalic - Respiratory Respiratory exam: Present: clear to auscultation bilaterally - Cardiovascular Cardiovascular exam: Present: regular rate and rhythm - GI/Abdominal GI/Abdominal exam: Present: normal bowel sounds, soft. Absent: tenderness, rebound - Neurological Exam Neurological exam: Present: alert, oriented X3 - Psychiatric Psychiatric exam: Present: normal affect, normal mood Discharge Results Procedures and tests throughout hospitalization: Pending Orders 03/10/16 20:10 Blood Culture Stat 03/12/16 05:37 Smooth Muscle Antibody IN AM 03/13/16 05:19 Hemochromatosis HFE Gene Brenda IN AM 03/14/16 04:00 Comp Blood Count Auto Diff IN AM Comprehensive Metabolic Panel IN AM Labs on day of discharge: Labs from last 24 hours 03/13/16 03/13/16 03/12/16 07:02 05:19 19:19 Sodium 143 Potassium 4.2 Chloride 106 Carbon Dioxide 27 Anion Gap 14.2 BUN 5 L Creatinine 0.80 GFR Calculation 127 BUN/Creatinine Ratio 6.00 Glucose 208 H POC Glucose 225 H 125 H Calculated Osmolality 287.0 Calcium 7.7 L Total Bilirubin 0.60 AST 199 H ALT 277 H Alkaline Phosphatase 62 Total Protein 5.6 L Albumin 2.8 L Globulin 2.8 Albumin/Globulin Ratio 1.0 L 03/12/16 03/12/16 16:05 11:00 Sodium Potassium Chloride Carbon Dioxide Anion Gap BUN Creatinine GFR Calculation BUN/Creatinine Ratio Glucose POC Glucose 216 H 190 H Calculated Osmolality Calcium Total Bilirubin AST ALT Alkaline Phosphatase Total Protein Albumin Globulin Albumin/Globulin Ratio Preliminary micro results at discharge 03/10/16 20:10 Blood Culture - Preliminary Blood No growth at 1 day 03/10/16 20:10 Blood Culture - Preliminary Blood No growth at 1 day DS: Provider Date of admission: 03/10/16 16:29 Primary care physician: . No PCP Attending physician on admission: Neil Andrade MD Consults: 03/10/16 17:09 Consult to Physician [CONS] Routine Comment: GI eligibility consultant Re: acute hepatitis Consulting Provider: Ford Judd Consulting Provider Notified: Yes Person Notified: Roxy Date Notified: 03/11/16 Time Notified: 10:11 03/10/16 17:43 Consult to Pharmacy [CONS] Routine Reason for Pharmacy Consult: Adjust Meds Renal Funct Discharging clinician: Neil Andrade MD Expected date of discharge: 03/13/16
[2016-03-13 11:52] VITALS: BP 137/79
[2016-03-14] MEDS ORDERED: LEVOFLOXACIN 750 MG TABLET PO SCH (09:00)
== END 2016-03-13 15:50 | disposition home or self-care (01) | DRG 640 ==
LOC: N.ED 12:06 → N.EDINP 16:29 → N.5E 18:43
PROVIDERS: ADMIT Family Medicine; ATTEND Family Medicine